=== PATIENT | female | born 1995 | race Caucasian/White ===

== ENCOUNTER → 2017-09-28 16:56 | Outpatient (CLI) | payer OTHER, MEDICAID, SELFPAY ==
--- NOTE | 2017-09-28 16:58 | DI.MRI.S_ITS ---
PROCEDURE: MR LUMBAR SPINE WO CON INDICATIONS: Persistant low back pain TECHNIQUE: Noncontrast sagittal T1 spin echo and T2 fast echo, sagittal STIR, axial T1 and T2 fast spin echo through the lumbar spine. In cases with scoliosis, additional coronal T2 fast spin echo may be performed. COMPARISON: 08/23/2017 radiographs.. FINDINGS: Image quality: Excellent. Alignment and Curvature: Minimal L5-S1 retrolisthesis. Otherwise there is normal bony alignment. Bone Marrow: Marrow is of normal overall signal. No acute vertebral body compression fractures. Spinal Cord: Conus medullaris terminates at the L1-2 level. Visualized cord demonstrates normal signal and size. Paraspinous Soft Tissues: No paravertebral masses. L1-L2: Normal appearance. L2-L3: Normal appearance. L3-L4: Normal appearance. L4-L5: Normal appearance. L5-S1: Mild intervertebral body disc height loss with broad-based posterior disc fold. Minimal facet joint hypertrophy. Findings cause mild/moderate bilateral neural foraminal narrowing. Central spinal canal is patent. IMPRESSION: 1. Mild intervertebral body disc height loss with broad-based posterior disc bulge and minimal facet joint hypertrophy causes mild/moderate L5-S1 neural foraminal narrowing bilaterally. The central spinal canal is patent. Minimal retrolisthesis at this level. 2. Remainder of the lumbar spine is within normal limits. Dictated by: Silvano Roca M.D. on 09/29/2017 at 10:50 Approved by: Silvano Roca M.D. on 09/29/2017 at 10:54
== END ==
PROVIDERS: Family Provider Physician Assistant; PCP Physician Assistant; Visit Provider Physician Assistant
DX: M54.5 Low back pain (principal); M51.26 Other intervertebral disc displacement, lumbar region
CPT/HCPCS: 72148

== ENCOUNTER 2018-04-05 13:52 | Outpatient (CLI) | payer OTHER, MEDICAID, SELFPAY ==
[2018-04-05] VITALS (9 sets, daily range): BP systolic 97–114; BP diastolic 64–87; PULSE 81–92; RESP 16–18; TEMP 36.7; O2SAT 98–100
--- NOTE | 2018-04-05 13:54 | DI.RAD.S_ITS ---
PROCEDURE: PAIN L INTERLAMINAR/CAUDAL INJ INDICATIONS: INTERVERTEBRAL DISC DISPLACEMENT FINDINGS: Fluoroscopic spot filming was performed to verify placement of spinal needles at the L5-S1 level(s), as labeled on the films. Appropriate location(s) of the needle tip(s) was confirmed by injection of iodinated contrast. Dictated by: Ash Montoya M.D. on 04/06/2018 at 11:23 Approved by: Ash Montoya M.D. on 04/06/2018 at 11:24
[2018-04-05] MEDS: MIDAZOLAM 5 MG/5 ML VIAL IV (14:30)
[2018-04-05] MEDS: BUPIVACAINE 0.25% (PF) VIAL 2 ML INJ (14:33)
[2018-04-05] MEDS: IOPAMIDOL 15 ML VIAL 3 ML INJ (14:33)
[2018-04-05] MEDS: methylPREDNISolone acetate 80 MG/ML VIAL INJ (14:34)
[2018-04-05] MEDS: DEXAMETHASONE 10 MG/ML VIAL 20 MG INJ (14:34)
--- NOTE | 2018-04-05 14:36 | PC.NURSE ---
ASSISTING PT OFF TABLE AND TRANSPORTING TO POST PROC AREA IN STABLE CONDITION
--- NOTE | 2018-04-05 14:41 | P.PCN_ITS ---
Procedures Date/Time Date of procedure: 04/05/18 Time of procedure: 14:40 General Procedure description: PROVIDER: Lawrence Ham DO Operative Note PREOP DIAGNOSIS 1. HNP WITH RADICULAR FEATURES, 2. MULTILEVEL CENTRAL STENOSIS, POST OP DIAGNOSIS 1. HNP WITH RADICULAR FEATURES, 2. MULTILEVEL CENTRAL STENOSIS, PROCEDURES 1. FLUORSCOPICALLY GUIDED CONTRAST CONTROLLED INTERLAMINAR EPIDURAL STEROID INJECTION - L5/S1 PHYSICIAN: Lawrence Ham DO INDICATIONS Elvia is referred by OLGA LIDIA Cheatham for treatment of HNP L>R LE symptoms. FINDINGS Multilevel Central Spinal Stenosis with Nerve Root Compression DESCRIPTION OF PROCEDURE Fluoroscopically guided, contrast-controlled L5/S1 translaminar epidural steroid injection. Following denial of allergy and review of potential side effects and complications, including, but not necessarily limited to, infection, allergic reaction, local tissue breakdown, temporary as well as permanent nerve injury, paralysis, stroke and possible , the patient indicated that the patient understood and agreed to proceed. An informed consent document was signed by the patient, witnessed by a nurse, and placed in the patient's chart. Additionally, other treatment options including modalities, medications, and physical therapy were reviewed with the patient. After review of previous anaesthesic history and IV conscious sedation the patient was deemed safe to proceed with todays procedure with IV conscious sedation as ASA class II designation. Safety time-out was performed to confirm patient ID, procedure to be performed and site of procedure. IV sedation was accomplished with a combination of 5mg of Versed administered by the RN after DO order, titrated to patient comfort during the course of the procedure while the patient remained responsive to all verbal commands. In the prone position, following sterile prep and drape of the lumbar region, the L5/S1 translaminar space was identified fluoroscopically. The skin was anesthetized via a 25-gauge, 1.5-inch needle with 1% lidocaine solution. At this point, a 22-gauge short bevel spinal needle was atraumatically introduced and advanced under fluoroscopic guidance into the region of the L5/S1 translaminar space. Depth was confirmed on lateral view. Radiological data, including multiple fluoroscopic views of the lumbar spine, reveal a spinal needle at the L5/S1 translaminar space. Lateral views then show placement of the needle in the epidural space. Subsequent views show contrast material flowing superiorly and inferiorly in the epidural space. No vascular or intrathecal uptake is observed. At this point, using loss of resistance technique with saline and air, the epidural space was entered. This was confirmed following negative aspiration with injection of approximately 1.5 cc of Isovue 200, showing excellent epidural flow without vascular or intrathecal uptake. At this point, 1 cc of 1 % lidocaine solution combined with 3 cc or 20 mg of dexamethasone and 80mg Depo medrol was injected without incident. The patent tolerated the procedure without signs of symptoms of complications prior to transfer to the recovery area for further monitoring. The patient was then transferred to the recovery area where they were observed for an appropriate period of time after the injection. The patient reported a VAS score of 6 prior to the procedure and a post-procedure VAS of 0. Total Fluoroscopy Time: 11.8 seconds Total Conscious Sedation Time: 24min POST OP INSTRUCTIONS The patient was provided a Pain Log to continue to record their response to the target-specific procedure prior to follow-up visit with their referring physician. Additionally, specific post-injection care instructions and a contact number to our office were provided if concerns arise regarding possible complications associated with the procedure are suspected. Lawrence Ham DO Complications: none
--- NOTE | 2018-04-05 15:19 | PC.NURSE ---
Received pt from post procedure via Wheelchair from Tawnya DOSHI for continued monitoring. Pt able to move from w/c to chair without difficulty.
== END 2018-04-05 15:05 ==
LOC: RAD 13:53
PROVIDERS: Family Provider Physician Assistant; PCP Physician Assistant; Visit Provider Physical Medicine & Rehabilitation
DX: M51.17 Intervertebral disc disorders with radiculopathy, lumbosacral region (principal); M48.07 Spinal stenosis, lumbosacral region; M47.27 Other spondylosis with radiculopathy, lumbosacral region
CPT/HCPCS: 62323; 99152; J1040; J1100; J2250

== ENCOUNTER 2018-07-11 12:18 | Outpatient (CLI) | payer OTHER, MEDICAID, SELFPAY ==
[2018-07-11] VITALS (8 sets, daily range): BP systolic 101–130; BP diastolic 48–73; PULSE 67–90; RESP 16–18; TEMP 36.9; O2SAT 98–100
--- NOTE | 2018-07-11 12:19 | DI.RAD.S_ITS ---
PROCEDURE: PAIN L/SI FACET INJ/BLK 1STL INDICATIONS: Lumbosacral spondylosis with facet arthropathy FINDINGS: Fluoroscopic spot filming was performed to verify placement of spinal needles at the L5 and S1 level(s), as labeled on the films. Appropriate location(s) of the needle tip(s) was confirmed by injection of iodinated contrast. IMPRESSION: Intraoperative fluoroscopy provided for right L5-S1 facet injections Dictated by: Diana Saini M.D. on 07/11/2018 at 15:06 Approved by: Diana Saini M.D. on 07/11/2018 at 15:07
[2018-07-11] MEDS: MIDAZOLAM 5 MG/5 ML VIAL IV (13:33)
[2018-07-11] MEDS: fentaNYL 100 MCG/2 ML INJ 50 MCG IV (13:33)
[2018-07-11] MEDS: IOPAMIDOL 15 ML VIAL 3 ML INJ (13:39)
[2018-07-11] MEDS: BUPIVACAINE 0.5% (PF) VIAL 2 ML INJ (13:40)
[2018-07-11] MEDS: BETAMETHASONE 30 MG/5 ML MDV 12 MG INJ (13:40)
--- NOTE | 2018-07-11 13:42 | PC.NURSE ---
ASSISTING PT OFF TABLE AND TRANSPORTING TO POST PROC AREA IN STABLE CONDITION
--- NOTE | 2018-07-11 13:47 | P.PCN_ITS ---
Procedures Date/Time Date of procedure: 07/11/18 Time of procedure: 13:46 General Procedure description: PREOP DIAGNOSIS 1. FACET ARTHROPATHY, 2. AXIAL LBP, 3. MULTILEVEL DDD, POST OP DIAGNOSIS 1. FACET ARTHROPATHY, 2. AXIAL LBP, 3. MULTILEVEL DDD, PROCEDURES 1. FLUORSCOPICALLY GUIDED CONTRAST CONTROLLED FACET JOINT INJECTIONS RIGHT L4/5, L5/S1 SURGEON: Lawrence Ham, DO INDICATIONS Elvia is referred by SUREKHA Cheatham for treatment of Axial LBP FINDINGS Multilevel Facet Arthropathy with Clinically significant axial LBP DESCRIPTION OF PROCEDURE Fluoroscopically guided, contrast-controlled right L4/5, L5/S1 facet joint injections. Following denial of allergy and review of potential side effects and complications, including, but not necessarily limited to, infection, allergic reaction, local tissue breakdown, stroke, temporary or permanent nerve injury, paralysis, and possible , the patient indicated that the patient understood and agreed to proceed. An informed consent document was signed by the patient, witnessed by a nurse, and placed in the patient's chart. Additionally, other treatment options including medications, modalities, and physical therapy were reviewed with the patient. After review of previous anaesthesic history and IV conscious sedation the patient was deemed safe to proceed with todays procedure with IV conscious sedation as ASA class II designation. Safety time-out was performed to confirm patient ID, procedure to be performed and site of procedure. IV sedation was accomplished with a combination of 5mg Versed and 50 mcg of Fentanyl was administered by the RN after DO order, titrated to patient comfort during the course of the procedure while the patient remained responsive to all verbal commands. In the prone position, following sterile prep and drape of the lumbar region, the posterior aspect of the right L4/5, L5/S1 facet joints were identified fluoroscopically. The skin was anesthetized via a 25-gauge 1.5-inch needle with 1% lidocaine solution into the corresponding facet joints. At this point, a 22- gauge 3.5-inch spinal needle was atraumatically introduced and advanced under fluoroscopic guidance into the corresponding facet joints. Following negative aspiration, injections of approximately 0.2-cc of Isovue 200 confirmed interarticular placement without vascular uptake. Radiological data, including multiple fluoroscopic views of the lumbosacral spine, reveal a spinal needle at the right L4/5, L5/S1 facet joints. Subsequent views show flow of contrast material both superiorly and inferiorly within the joint space without vascular or intrathecal uptake. At this point, a total of 0.5 cc including a mixture of 0.25cc Marcaine and 0.25cc betamethasone was injected without complication into each of the corresponding facet joints. The procedure tolerated the procedure well without signs or symptoms of complications prior to transfer to the recovery area continued monitoring without incident. The patient was then transferred to the recovery area where they were observed for an appropriate period of time after the injection. The patient reported a VAS score of 7 prior to the procedure and a post-procedure VAS of 0. Total Fluoroscopy Time: 12.7 seconds Total Conscious Sedation Time: 24min POST OP INSTRUCTIONS The patient was provided a Pain Log to continue to record their response to the target-specific procedure prior to follow-up visit with their referring physician. Additionally, specific post-injection care instructions and a contact number to our office were provided if concerns arise regarding possible c omplications associated with the procedure are suspected. Lawrence Ham, Complications: none
--- NOTE | 2018-07-11 13:57 | PC.NURSE ---
Pt returned at 1347 post procedure awake and alert. Able to move from w/c to chair with standby assist. Resumed monitoring from Tawnya DOSHI.
--- NOTE | 2018-07-12 13:09 | PC.NURSE ---
FOLLOW UP CALL MADE, PT C/O INCREASED BACK DISCOMFORT AND SLIGHT HEADACHE. STATES SHE DIDN'T KNOW IF SHE COULD TAKE HER DIAZAPAM AND/OR IBUPROFEN. I EXPLAINED TO HER THAT INCREASED PAIN DUE TO THE PROCEDURE IS NORMAL THE DAY AFTER. SHE DENIED INCREASED HEADACHE PAIN WITH MOVEMENT OR LYING DOWN. I INSTRUCTED HER THAT SHE COULD TAKE HER DIAZAPAM AND/OR IBUPROFEN PRESCRIBED AND TOLD HER TO CALL BACK IF HER HEADACHE BECOME POSITIONAL OR SEVERELY INCREASED IN SEVERITY. PT VERBALIZED UNDERSTANDING OF THESE INSTRUCTIONS.
== END 2018-07-11 14:18 ==
LOC: RAD 12:18
PROVIDERS: Family Provider Physician Assistant; PCP Physician Assistant; Visit Provider Physical Medicine & Rehabilitation
DX: M47.817 Spondylosis without myelopathy or radiculopathy, lumbosacral region (principal); M47.816 Spondylosis without myelopathy or radiculopathy, lumbar region; M51.36 Other intervertebral disc degeneration, lumbar region; M51.37 Other intervertebral disc degeneration, lumbosacral region; M54.5 Low back pain
CPT/HCPCS: 64493; 64494; 99152; J0702; J2250; J3010

== ENCOUNTER 2018-08-29 09:33 | Outpatient (CLI) | payer OTHER, MEDICAID, SELFPAY ==
[2018-08-29] VITALS (9 sets, daily range): BP systolic 106–122; BP diastolic 65–77; PULSE 66–86; RESP 16–20; TEMP 36.6; O2SAT 97–100
--- NOTE | 2018-08-29 09:36 | DI.RAD.S_ITS ---
PROCEDURE: PAIN SI JOINT INJECTION INDICATIONS: SACROCOCCYGEAL DISORDERS FINDINGS: Fluoroscopic spot filming was performed to verify placement of spinal needles at the right sacroiliac joint , as labeled on the films. Appropriate location(s) of the needle tip(s) was confirmed by injection of iodinated contrast. Dictated by: Ash Montoya M.D. on 08/29/2018 at 12:19 Approved by: Ash Montoya M.D. on 08/29/2018 at 12:19
[2018-08-29] MEDS: fentaNYL 100 MCG/2 ML INJ IV (10:43)
[2018-08-29] MEDS: MIDAZOLAM 5 MG/5 ML VIAL IV (10:43)
[2018-08-29] MEDS: IOPAMIDOL 15 ML VIAL 3 ML INJ (10:54)
[2018-08-29] MEDS: BUPIVACAINE 0.5% (PF) VIAL 2 ML INJ (10:55)
[2018-08-29] MEDS: BETAMETHASONE 30 MG/5 ML MDV 12 MG INJ (10:55)
--- NOTE | 2018-08-29 10:57 | PC.NURSE ---
ASSISTING PT OFF TABLE AND TRANSPORTING TO POST PROC AREA IN STABLE CONDITION
--- NOTE | 2018-08-29 11:01 | P.PCN_ITS ---
Procedures Date/Time Date of procedure: 08/29/18 Time of procedure: 11:00 General Procedure description: PREOP Dx: Sacroiliac joint pain/DJD POST OP DX: Sacroiliac Joint Pain/DJD Procedures: Fluoroscopic guided contrast controlled right sacroiliac joint injection Physician: Lawrence Ham D.O. Indications: Elvia is referred by PAC [place] for treatment of right sacroiliac joint DJD Description of procedure Fluoroscopic guided, contrast controlled right sacroiliac joint injection Following denial of allergies and review of potential side effects and complications, including, but not necessarily limited to, infection, allergic reaction, local tissue breakdown, temporary as well as permanent nerve injury, paralysis, stroke and possible , the patient indicated that they understood and agreed to proceed. An informed consent was signed by the patient, witnessed by a nurse, and placed in the patient's chart. Additionally, other treatment options including modalities, medications, and physical therapy were reviewed w ith the patient. After review of previous anaesthesic history and IV conscious sedation the patient was deemed safe to proceed with todays procedure with IV conscious sedation as ASA class II designation. Safety time-out was performed to confirm patient ID, procedure to be performed and site of procedure. IV sedation was accomplished with a combination of 5mg of Versed and 50mcg of Fentanyl was a dministered by the RN after DO order, titrated to patient comfort during the course of the procedure while the patient remained responsive to all verbal commands In the prone position following sterile prep and drape of the pelvic region, the hyper lucency on in the inferior aspect of the sacroiliac joint was identified fluoroscopically the skin was anesthetized be a 25 gauge 1 eventual with appr oximately 2 cc of 1% lidocaine solution. At this point, a 22 gauge 3in spinal needle was atraumatically introduced and advanced under fluoroscopic guidance into the inferior aspect of the right sacroiliac joint. Following negative aspiration, approximately 0.3cc of Isovue-300 was injected confirming intra- articular placement without vascular uptake. Radiographic data, including multiple fluoroscopic views of the pelvis, reveals a spinal needle in the sacroiliac joint hyper lucent zone. Subsequent view show flow contrast tear superiorly and inferiorly within the joint capsule without vascular intrathecal uptake. At this point a total of 1cc or 0 8 of 0.5% Marcaine was combined with 1cc of 6 mg of betamethasone was injected without incident. The procedure tolerated the procedure well without signs or symptoms of complications prior to transfer to the recovery area continued monitoring without incident. The patient was then transferred to the recovery area with a bur observed for an appropriate time after the injection. The patient reverted a vas score of 7 prior to the procedure and postprocedure vas of 1. Total fluoroscopy time: 22.7 sec Total conscious sedation time: 24 min Postop instructions The patient was provided with a pain like to continue to record the patient's response to the target specific procedure prior to the patient's follow-up visit with the referring physician. Additionally, specific post injection care instructions and a contact number to our office were provided if concerns arise regarding the possible complications associated with procedure are suspected. Lawrence Ham D.O. Complications: none
--- NOTE | 2018-08-29 12:24 | PC.NURSE ---
Pt returned from procedure via wheelchair awake and alert able to get from w/c to chair with standby assist. Resumed monitoring from Tawnya DOSHI.
== END 2018-08-29 11:25 ==
LOC: RAD 09:35
PROVIDERS: Family Provider Physician Assistant; PCP Physician Assistant; Visit Provider Physical Medicine & Rehabilitation
DX: M53.3 Sacrococcygeal disorders, not elsewhere classified (principal); M47.898 Other spondylosis, sacral and sacrococcygeal region
CPT/HCPCS: 27096; 99152; J0702; J2250; J3010

== ENCOUNTER → 2018-12-11 09:58 | Outpatient (CLI) | payer OTHER, MEDICAID, SELFPAY ==
[2018-12-11 11:48] LABS: C-Reactive Protein Quant 0.6 mg/dL (<1.0)
[2018-12-11 11:51] LABS: Erythrocyte Sedimentation Rate 8 MM/HR (0-20)
[2018-12-26 11:52] LABS: HLA B27 POSITIVE
== END ==
PROVIDERS: Family Provider Physician Assistant; PCP Physician Assistant; Visit Provider Registered Nurse
DX: M54.5 Low back pain (principal); G89.29 Other chronic pain; M53.3 Sacrococcygeal disorders, not elsewhere classified
CPT/HCPCS: 36415; 85651; 86140; 86812

== ENCOUNTER → 2019-02-27 12:33 | Outpatient (CLI) | payer OTHER, MEDICAID, SELFPAY ==
[2019-02-27 12:59] LABS: Hematocrit 38.4 % (36-46); Hemoglobin 12.9 g/dL (12.0-16.0); Mean Corpuscular HGB Conc 33.5 % (30-36); Mean Corpuscular Hemoglobin 29.2 PG (26-34); Mean Corpuscular Volume 87.2 fL (80-100); Platelet Count 241 X10^3/uL (150-400); Red Cell Distribution Width 15.6 % (11.6-14.8); White Blood Cell Count 7.2 X10^3/uL (4.5-11.0)
== END ==
PROVIDERS: PCP Physician Assistant; Visit Provider Nurse Practitioner Family
DX: K62.5 Hemorrhage of anus and rectum (principal)
CPT/HCPCS: 36415; 85027